=== PATIENT | male | born 1970 | race Caucasian/White ===

== ENCOUNTER → 2017-10-20 | Outpatient (CLI) | payer BC ==
[~2017-10-20] MED LIST: ALEVE220 M1 PO; AMLODIPINE BESYL5 M1 PO; CELEBREX 200 M200 MG PO; FLEXERIL PO; HYDROCODONE-AP1 EAC6 PO; IBUPROFEN 800800 M1 PO; LISINOPRIL5 MG PO; MOBIC7.5 MG PO; NEURONTIN 300300 M1 PO; NORCO 5-325 TA1 EACH PO; NORVASC5 MG PO; TIZANIDINE HCL 22 M1; TRAMADOL 50 MG50 MG PO; ZESTRIL5 MG PO
--- NOTE | 2017-10-22 09:33 | PAINCON ---
[address] [address] PAIN MANAGEMENT CONSULTATION Name: KARINA MCMILLAN [id number] Admission: 10/20/17 Attend Phys: Layo Snyder Discharge: Date of : 72 Report #: [id number] THIS REPORT FOR: //name// CC: Felipe Lira The patient is a very pleasant 46-year-old gentleman who I have long treated for symptomatic lumbar radiculopathy, component of SI-mediated pain. He has done well with occasional epidural injections. I initially started seeing him in 03/2011. He was last seen in pain clinic last summer in 05/2017, was given lumbar epidural injection and right SI joint injection. The patient was referred to Physical Therapy for core strengthening and has continued to dutifully do these exercises. He tells me he is doing reasonably well until he shoveled some snow recently with significant increase in low back pain radiating to the buttock, right greater than left side. He notes he had some increased stress, his aohcbq-et-lwx on Wednesday, he notes his and his aqkjsu-gk-joa were very close. He has been trying to console his as his axtoqu-bl-dqb got sicker and ultimately passed. His father apparently also had a total hip arthroplasty recently and is now staying with them well. He recuperates. With increased activity and increased family stressors, he was still doing reasonably well until several weeks ago when he was shoveling snow and developed acute exacerbation of pain. PHYSICAL EXAMINATION: GENERAL: Shows 5 feet 9 inches, 171 pounds gentleman, BMI is 25.7 kg/m2. VITAL SIGNS: Blood pressure is modestly elevated at 140/89, pulse 70, respiratory rate 16. EXTREMITIES: Rises from chair using armrest, markedly antalgic gait, diffuse tenderness across the low back, positive straight leg raise bilaterally, some tenderness over the right SI joint; however FLORENCE test and Gaenslen's test are negative bilaterally. ASSESSMENT: Symptomatic lumbar radiculopathy, clinical exam and history, acute exacerbation of axial back and lumbar radicular pain. RECOMMENDATIONS: 1. Hydrocodone 5/325, dispensed 45 tablets, one tablet q. 6 hours as needed for pain. 2. Continue nonsteroidal anti-inflammatory medication OTC. 3. Epidural injection under fluoroscopy today at L5-S1. 4. Follow up in 2 to 3 weeks for reevaluation. Cancel if doing well. We will reevaluate for SI-mediated pain at that time. PROCEDURE: Lumbar epidural [place] [address] PAIN MANAGEMENT CONSULTATION Name: KARINA MCMILLAN [facility] [id number] Admission: 10/20/17 Attend Phys: Layo Snyder Discharge: Date of : 72 Report #: [id number] PROCEDURE NOTE: After both written and informed consent to include risk of spinal cord damage, increased pain, weakness and dural puncture, the patient was taken to the fluoroscopy suite, placed in the prone position. After sterile prep and drape, a skin wheal with lidocaine was raised. A 22-gauge epidural Tuohy needle was inserted in the midline at L5-S1 with good loss to resistance. Negative aspiration for cerebrospinal fluid or blood was noted. Then 1 mL of Omnipaque under biplanar fluoroscopy showed good spread within the epidural space. This was followed with 80 mg of triamcinolone plus 1 mL of 1.5% preservative-free Xylocaine, 0.5 mL Xylocaine was then injected to flush the needle; it was removed. The patient was monitored for an appropriate period of time and discharged in good and stable condition. <ELECTRONICALLY SIGNED> By: Clayton Lira DO 10/22/17 0933 [id number] Lira DO /nt
== END | disposition home or self-care (01) ==
LOC: M.PC 08:41
DX: M54.16 Radiculopathy, lumbar region (principal); M53.3 Sacrococcygeal disorders, not elsewhere classified; Z79.899 Other long term (current) drug therapy

== ENCOUNTER → 2018-03-09 | Outpatient (CLI) | payer BC ==
--- NOTE | 2018-03-10 07:09 | PAINCON ---
[facility] [address] [place] [address] PAIN MANAGEMENT CONSULTATION Name: KARINA MCMILLNA [id number] Admission: 03/09/18 Attend Phys: Layo Snyder Discharge: Date of : 72 Report #: [id number] THIS REPORT FOR: //name// CC: Felipe Lira The patient is a very pleasant 47-year-old gentleman, treated for symptomatic lumbar radiculopathy over the years. Last injection was back in October of L5-S1 with excellent improvement of pain. He has had some issues with some SI mediated pain as well. Returns to pain clinic today, noting he was doing very well for a number of months following last injection though in the past 6+ weeks or so, pain has begun to recur. He has played basketball with exacerbation of pain in the low back and left leg. He does have some tenderness in the left low back, positive straight leg raise on the left, modestly positive Bairon test on this side as well. Review of diagnostic findings noting compromise of the lumbar spine on MRI. PHYSICAL EXAMINATION: VITAL SIGNS: Otherwise stable. ASSESSMENT: Symptomatic lumbar radiculopathy by clinical exam and history, possible component of left sacroiliac mediated pain. RECOMMENDATIONS: 1. After discussion with the patient today, we elected to renew hydrocodone 5/325, limit 60 tablets. Last prescription for 45 tablets in October has lasted greater than 5 months. 2. Epidural injection under fluoroscopy today at L5-S1. 3. Follow up in 5 weeks for reevaluation. If symptoms were to continue, may consider repeat epidural injection versus SI joint injection depending on clinical exam at that time. ASSESSMENT: Symptomatic lumbar radiculopathy by clinical exam and history, having failed conservative therapy with greater than 50% relief for multiple months following last injection in October. PROCEDURE NOTE: Lumbar epidural injection under fluoroscopy. PROCEDURE NOTE: After both written and informed consent to include risk of spinal cord damage, increased pain, weakness and dural puncture, the patient was taken to the fluoroscopy suite, placed in the prone position. After sterile prep and drape, a skin wheal with lidocaine was raised. A 22-gauge epidural Tuohy needle was inserted in the midline at L5-S1 with good loss to resistance. Negative aspiration for cerebrospinal fluid or blood was noted. Then 1 mL of Omnipaque under biplanar fluoroscopy showed good spread within the epidural space. This was followed with 80 mg of triamcinolone plus 1 mL of 1.5% [place] [address] PAIN MANAGEMENT CONSULTATION Name: HIPOLITOKARINA Titus Room: [facility]#: [id number] Admission: 03/09/18 Attend Phys: Layo Snyder Discharge: Date of : 72 Report #: [id number] preservative-free Xylocaine, 0.5 mL Xylocaine was then injected to flush the needle; it was removed. The patient was monitored for an appropriate period of time and discharged in good and stable condition. <ELECTRONICALLY SIGNED> By: Clayton Lira DO 03/10/18 0709 [id number] Lira DO /nt
== END | disposition home or self-care (01) ==
LOC: M.PC 03:47
DX: M54.16 Radiculopathy, lumbar region (principal); G89.29 Other chronic pain; M53.3 Sacrococcygeal disorders, not elsewhere classified; Z79.899 Other long term (current) drug therapy; Z98.890 Other specified postprocedural states; Z79.891 Long term (current) use of opiate analgesic

== ENCOUNTER → 2019-03-07 | Outpatient (CLI) | payer BC ==
[~2019-03-07] MED LIST changes: +MEDROLDOSEPACK PO; +MOBIC15 MG PO
--- NOTE | ~2019-03-07 | PAINCON ---
[address] [address] PAIN MANAGEMENT CONSULTATION Name: KARINA MCMILLAN Room: [facility] AMY HumphreysPollo#: [id number] Admission: 03/07/19 Attend Phys: Joseph Lainez MD Discharge: Date of : 72 Report #: [id number] THIS REPORT FOR: //name// CC: Felipe Lainez DATE OF SERVICE: 03/07/2019 CHIEF COMPLAINT: Pain in the right knee. FOLLOWUP HISTORY: The patient is a 48-year-old gentleman who has been seen in the pain clinic in the past by Dr. Clayton Lira. This is my first visit with the patient. The patient has had a history of lumbar radicular pain in the past. He has undergone injections and found that those to be beneficial. He has a new complaint is that of pain in his right knee. He has been active out in his yard. As a result of laying down sod he tried to provide good ground contact. He walks vigorously over the sod. In areas he stumped it down to get good contact. After finishing that he noticed that the next morning, his knee was significantly swollen. He noted that it felt tight. There was no evidence of infection. There is no significant heat. He has been using ice over the last couple of weeks. He notes that using the brace is helpful. He is a very active gentleman. He works in a very physical way. He notes his pain is worse when he is walking lateral as well as when he is walking backwards. He denies any twisting motion during the event. Denies any falls during the event. Denies any changes in numbness or tingling in the lower extremity. He has not noticed any significant signs of infection or swelling in the lower extremity. He has not had a situation like this in the past, this is new. ALLERGIES: No known drug allergies. CURRENT MEDICATIONS: Tramadol 50 mg q. 6 hours p.r.n., lisinopril 5 mg, has used Norvasc in the past. PAST MEDICAL HISTORY: Stomach problems secondary use of nonsteroidal anti-inflammatory medications. PAST SURGICAL HISTORY: Appendectomy in 1983. 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 REVIEW OF SYSTEMS: Generally good health; otherwise generally unremarkable. He has a history of lumbar radicular pain. LABORATORY DATA: 1. No new laboratory values are available. MRI dated 05/06/2017 reveals L3-L4 stable diffuse annular bulge greatest right [place] [address] PAIN MANAGEMENT CONSULTATION Name: KARINA MCMILLAN Room: [facility]#: [id number] Admission: 03/07/19 Attend Phys: Joseph Lainez MD Discharge: Date of : 72 Report #: [id number] neural foraminal stenosis, facets are unremarkable. Thecal sac 1.2 cm AP. 2. L4-L5 stable mild annular disk bulge and mild facet arthropathy. Mild anterior recess stenosis greater on the left appears unchanged from neural foramen, thecal sac 1.3 cm AP. 3. L5-S1 loss of disk height. Diffuse disk osteophyte complex is seen. The central posterior disk extrusion overall appears similar to the prior study with mass effect on the thecal sac and approach in the lateral recesses. Mild facet arthropathy is seen. Stable bilateral neural foraminal encroachment without contact the nerve root. Thecal sac 1.2 cm. PAIN CLINIC ASSESSMENT/PQRS: 1. Osteoarthritis. The patient is not being treated for osteoarthritis. He is not being treated for rheumatoid arthritis. 2. Height 5 feet 8 inches, weight 177 pounds, BMI is 27. 3. Vital Signs: Blood pressure 151/104, heart rate is 78, respiratory rate is 16, and room air saturation is 98%. 4. Pain intensity is 0 while sitting, 5-6 with walking lateral or backwards. 5. Fall history: The patient has not fallen in the last 3 months. 6. Blood thinner. The patient is not on a blood thinning medication. 7. Hypertension. The patient is being treated for hypertension. 8. Opioids greater than 6 weeks. The patient is not on opioid medication at this point, but has taken tramadol. 9. Risk assessment tool, low for opioid use. 10. Functional assessment tool. 11. Recreational drug use. The patient denies use of recreational drugs. 12. Tobacco: The patient chews tobacco. 13. Alcohol: The patient denies significant alcohol intake. PHYSICAL EXAMINATION: GENERAL: The patient is a well-developed, well-nourished white male. Appears his stated age. He is alert and oriented x 3. His affect is appropriate. Speech is fluent. HEENT: Normocephalic, atraumatic. Extraocular eye muscles intact. Sclerae nonicteric. Mucous membranes are moist. The patient's is accompanying him. HEART: Regular rate. ABDOMEN: Nontender. Bowel sounds present. EXTREMITIES: Upper extremity muscle strength judged to be 5/5 for the major muscles in the upper extremity. Lower extremity muscle strength judged to be 5/5 on the left lower extremity. The patient has some pain and discomfort in the right lower extremity. In the knee, there is no significant swelling. It looks comparable to the contralateral side. Temperature valentine, both are the same. There is no edema and no signs of infection. The patient did note that if he walks backwards he notes some pulling in his posterior leg as well as if he walk sideways some discomfort in the knee. The patient has been using a knee brace, which helps to keep the knee in place. He [place] [address] PAIN MANAGEMENT CONSULTATION Name: KARINA MCMILLAN Room: [facility]#: [id number] Admission: 03/07/19 Attend Phys: Joseph Lainez MD Discharge: Date of : 72 Report #: [id number] this he is not having very much problem. IMPRESSION: 1. Knee strain. 2. History of lumbar radicular pain. RECOMMENDATIONS: We discussed treatment options with the patient. At this juncture, I think that, it looks like things are going reasonably well. There are no signs of infection. It does not appear that there is any anterior drawer sign or abnormal motions in the patient's knee. We would recommend that he try a Medrol Dosepak to take in the interim. He will also be given a nonsteroidal anti-inflammatory medication. He will try Mobic and note its efficacy. Hopefully, things will continue to improve. Overall, he feels that things are getting better. He did have an episode in the back where he procrastinated too long as a result felt that his healing was delayed. He did not want to delay this episode. We will have the patient, give us a call in the near future or call us if he has any concerns. We would like to thank you for letting us participate in his care. We hope he continues to improve. By: [id number]. Jonathan Lainez MD /nt
== END ==
LOC: M.PC 12:30
DX: S86.811A Strain of other muscle(s) and tendon(s) at lower leg level, right leg, initial encounter (principal); M54.16 Radiculopathy, lumbar region; X58.XXXA Exposure to other specified factors, initial encounter; Y93.89 Activity, other specified; Y92.89 Other specified places as the place of occurrence of the external cause; Y99.8 Other external cause status